=== PATIENT | male | born 1940 | race Caucasian/White ===

== ENCOUNTER 2022-03-19 00:12 | Inpatient (IN) | payer MEDICARE ==
[2022-03-19 00:35] LABS: Analyzer IN Cardio ER; Base Excess (BEa) 5.3 mEq/L (-2.0 to +3.0); Calcium, Ionized (arterial) 1.11 mmol/L (1.12-1.30); Carboxyhemoglobin (COHb) 0.4 gm% (0.0-3.0); Hemoglobin (Hb) 12.1 g/dL (14.0-18.0); O2 Tension (PaO2), arterial 141.5 mmHg (> 60.0); Potassium - ABG Lab 3.81 mmol/L (3.70-5.30)
[2022-03-19 00:36] LABS: pH, Arterial 7.25 (7.35-7.45)
[2022-03-19 00:37] LABS: CO2 Tension 82.1 mmHg (35.0-45.0); Puncture Site RRA
[2022-03-19 00:40] LABS: Bacteria/HPF None Seen HPF (None Seen); Bilirubin Negative (Negative); Blood, Urine 1+ (Negative); Clarity Clear (Clear); Glucose, Urine (Dipstick) Normal (Negative); Ketone, Urine 10 mg/dL (Negative); Leukocyte Negative Leu/uL (Negative); Nitrite Negative (Negative); Protein, Urine (Dipstick) 30 mg/dL (Neg-Trace); RBC/HPF 0-3 HPF (0-3); Specific Gravity, Urine 1.011 (1.002-1.036); Squamous Epithelial None Seen HPF (0-3); Urobilinogen Normal mg/dL (Less than 2); WBC/HPF 0-3 HPF (0-3); pH, Urine 5.5 (5.0-9.0)
[2022-03-19 00:41] LABS: ALV-art Gradient 468.875 mmHg (0-20)
[2022-03-19 00:43] LABS: #Lymphocytes 0.6 thou/uL (1.20-3.40); #Monocytes 0.6 thou/uL (0.11-0.59); #Neutrophils 4.9 thou/uL (1.40-6.50); %Basophils 0.2 % (0.0-1.0); %Eosinophils 0.7 % (0.0-10.0); %Lymphocytes 10.5 % (21.0-51.0); %Monocytes 9.1 % (0.0-10.0); %Neutrophils 79.5 % (42.0-75.0); Hemoglobin 11.1 g/dL (14.0-18.0); Mean Corpuscular HGB CONC 30.6 g/dL (32.0-36.0); Mean Corpuscular Hemoglobin 31.3 pg (27.0-31.0); Platelet Count 185 thou/uL (130-400); RBC Distribution Width 13.2 % (11.5-14.5); Red Blood Cell (RBC) Count 3.56 mill/uL (4.70-6.10); White Blood Cell (WBC) Count 6.1 thou/uL (4.8-10.8)
[2022-03-19] MEDS ORDERED: Ondansetron PF 4 MG/2 ML Vial ONE (00:43)
[2022-03-19 00:58] LABS: INR-International Normal Ratio 3.9; Prothrombin Time 39.1 sec (12.0-14.7)
[2022-03-19 00:59] LABS: PTT 85.1 sec (22.9-36.1)
[2022-03-19 01:15] LABS: ALT (SGPT) 35 U/L (8-55); AST (SGOT) 26 U/L (5-34); Albumin 3.6 g/dL (3.4-4.8); Alkaline Phosphatase 58 U/L (40-110); Anion Gap 15 mmol/L (10-20); BUN (Urea Nitrogen) 36 mg/dL (8.4-25.7); Bilirubin, Total 0.5 mg/dL (0.2-1.2); Calc. Creatinine Clearance 0 mL/min (70-130); Carbon Dioxide 35 mmol/L (23-31); Chloride 93 mmol/L (98-107); Globulin 2.3 g/dL (2.4-3.5); Glucose 103 mg/dL (83-110); Potassium 3.8 mmol/L (3.5-5.1); Protein, Total 5.9 g/dL (5.8-8.1); Sodium 139 mmol/L (136-145)
[2022-03-19] MEDS ORDERED: Furosemide 40 MG/4 ML VIAL ONE (01:49)
[2022-03-19 02:22] LABS: SARS-CoV-2 NAA Rapid Test Not Detected (NotDetected)
[2022-03-19] MEDS ORDERED: Dextrose 5 % And 0.9 % NaCl 1,000 ML IV SCH (02:30)
[2022-03-19] MEDS ORDERED: Ondansetron PF 4 MG/2 ML Vial IVP PRN (02:37)
[2022-03-19 04:23] LABS: #Eosinphils 0.1 thou/uL (0.0-0.7); #Lymphocytes 0.6 thou/uL (1.20-3.40); #Monocytes 0.5 thou/uL (0.11-0.59); #Neutrophils 4.4 thou/uL (1.40-6.50); %Basophils 0.6 % (0.0-1.0); %Eosinophils 1.2 % (0.0-10.0); %Lymphocytes 10.5 % (21.0-51.0); %Monocytes 9.4 % (0.0-10.0); %Neutrophils 78.3 % (42.0-75.0); Hemoglobin 11.4 g/dL (14.0-18.0); Mean Corpuscular HGB CONC 31.2 g/dL (32.0-36.0); Mean Corpuscular Hemoglobin 31.9 pg (27.0-31.0); Mean Platelet Volume 7.3 fL (7.4-10.4); Platelet Count 184 thou/uL (130-400); RBC Distribution Width 13.1 % (11.5-14.5); Red Blood Cell (RBC) Count 3.58 mill/uL (4.70-6.10); White Blood Cell (WBC) Count 5.7 thou/uL (4.8-10.8)
[2022-03-19 04:36] LABS: Prothrombin Time 40.3 sec (12.0-14.7)
[2022-03-19 04:38] LABS: INR-International Normal Ratio 4.1
[2022-03-19 04:50] LABS: Anion Gap 13 mmol/L (10-20); BUN (Urea Nitrogen) 33 mg/dL (8.4-25.7); Calc. Creatinine Clearance 0 mL/min (70-130); Calcium 8.1 mg/dL (7.8-10.44); Carbon Dioxide 35 mmol/L (23-31); Chloride 94 mmol/L (98-107); Glucose 94 mg/dL (83-110); Magnesium 2.2 mg/dL (1.6-2.6); Potassium 3.9 mmol/L (3.5-5.1); Sodium 138 mmol/L (136-145)
[2022-03-19 04:54] LABS: Troponin I 0.013 ng/mL (< 0.028)
[2022-03-19] MEDS: Furosemide 40 MG/4 ML VIAL SLOW IVP SCH ×2 (06:39→14:01)
[2022-03-19 08:39] LABS: Troponin I 0.012 ng/mL (< 0.028)
[2022-03-20 04:04] LABS: #Lymphocytes 0.9 thou/uL (1.20-3.40); #Monocytes 0.8 thou/uL (0.11-0.59); #Neutrophils 5.4 thou/uL (1.40-6.50); %Basophils 0.2 % (0.0-1.0); %Eosinophils 0.5 % (0.0-10.0); %Lymphocytes 12.8 % (21.0-51.0); %Monocytes 10.6 % (0.0-10.0); %Neutrophils 75.9 % (42.0-75.0); Hemoglobin 11.6 g/dL (14.0-18.0); Mean Corpuscular Hemoglobin 32.1 pg (27.0-31.0); Mean Platelet Volume 7.5 fL (7.4-10.4); Platelet Count 200 thou/uL (130-400); Red Blood Cell (RBC) Count 3.62 mill/uL (4.70-6.10); White Blood Cell (WBC) Count 7.1 thou/uL (4.8-10.8)
[2022-03-20 04:20] LABS: Prothrombin Time 48.5 sec (12.0-14.7)
[2022-03-20 04:31] LABS: INR-International Normal Ratio 5.1
[2022-03-20 04:32] LABS: Anion Gap 17 mmol/L (10-20); BUN (Urea Nitrogen) 31 mg/dL (8.4-25.7); Calc. Creatinine Clearance 41 mL/min (70-130); Calcium 8.3 mg/dL (7.8-10.44); Carbon Dioxide 36 mmol/L (23-31); Chloride 91 mmol/L (98-107); Glucose 76 mg/dL (83-110); Magnesium 2.1 mg/dL (1.6-2.6); Potassium 3.4 mmol/L (3.5-5.1); Sodium 141 mmol/L (136-145)
[2022-03-20] MEDS: Furosemide 40 MG/4 ML VIAL SLOW IVP SCH ×2 (06:13→14:20)
[2022-03-21] MEDS: Acetaminophen 325 MG TAB PO PRN ×2 (03:41→18:41)
[2022-03-21 04:04] LABS: #Lymphocytes 0.9 thou/uL (1.20-3.40); #Monocytes 1.2 thou/uL (0.11-0.59); #Neutrophils 8.1 thou/uL (1.40-6.50); %Eosinophils 0.5 % (0.0-10.0); %Lymphocytes 8.8 % (21.0-51.0); %Monocytes 11.6 % (0.0-10.0); %Neutrophils 79.1 % (42.0-75.0); Mean Corpuscular HGB CONC 31.2 g/dL (32.0-36.0); Mean Corpuscular Hemoglobin 31.8 pg (27.0-31.0); Platelet Count 200 thou/uL (130-400); Red Blood Cell (RBC) Count 3.78 mill/uL (4.70-6.10); White Blood Cell (WBC) Count 10.2 thou/uL (4.8-10.8)
[2022-03-21 04:15] LABS: Prothrombin Time 50.3 sec (12.0-14.7)
[2022-03-21 04:20] LABS: INR-International Normal Ratio 5.4
[2022-03-21 04:26] LABS: BUN (Urea Nitrogen) 19 mg/dL (8.4-25.7); Calc. Creatinine Clearance 48 mL/min (70-130); Calcium 8.2 mg/dL (7.8-10.44); Glucose 153 mg/dL (83-110); Magnesium 1.8 mg/dL (1.6-2.6)
[2022-03-21 04:37] LABS: Anion Gap 16 mmol/L (10-20); Carbon Dioxide 39 mmol/L (23-31); Chloride 86 mmol/L (98-107); Potassium 3.1 mmol/L (3.5-5.1); Sodium 138 mmol/L (136-145)
[2022-03-21] MEDS: Furosemide 40 MG/4 ML VIAL SLOW IVP SCH ×2 (06:40→12:30)
[2022-03-21] MEDS ORDERED: Potassium Chloride 20 MEQ TAB PO SCH (08:30)
[2022-03-21] MEDS ORDERED: Mag-Al 1200 mg/1200 mg/30 ML UDCUP PO PRN (18:01)
[2022-03-21] MEDS: Simethicone Chewable 80 MG TAB PO PRN (18:41)
[2022-03-21] MEDS: Tamsulosin HCl 0.4 MG CAP PO SCH (20:23)
[2022-03-21] MEDS: Montelukast Sodium 10 mg Tablet PO SCH (20:23)
[2022-03-21] MEDS: Isosorbide Dinitrate 5 MG TAB PO SCH (20:23)
[2022-03-21] MEDS: Sucralfate 1 GM TAB PO SCH (20:23)
[2022-03-21] MEDS: NIFEdipine XL 90 MG TAB PO SCH (20:23)
[2022-03-21] MEDS: Atorvastatin Calcium 10 MG TAB PO SCH (20:24)
[2022-03-21] MEDS: Nystatin 500,000 UNITS/5 ML UDCUP SSW SCH (20:24)
[2022-03-22 04:08] LABS: INR-International Normal Ratio 3.9
[2022-03-22 04:23] LABS: BUN (Urea Nitrogen) 18 mg/dL (8.4-25.7); Calc. Creatinine Clearance 51 mL/min (70-130); Calcium 8.4 mg/dL (7.8-10.44); Glucose 148 mg/dL (83-110); Magnesium 1.9 mg/dL (1.6-2.6)
[2022-03-22 04:38] LABS: Chloride 85 mmol/L (98-107); Potassium 3.3 mmol/L (3.5-5.1); Sodium 138 mmol/L (136-145)
[2022-03-22 04:40] LABS: Anion Gap 13 mmol/L (10-20)
[2022-03-22 04:44] LABS: Carbon Dioxide 43 mmol/L (23-31)
[2022-03-22] MEDS: Furosemide 40 MG/4 ML VIAL SLOW IVP SCH (04:58)
[2022-03-22] MEDS ORDERED: Potassium Chloride 20 MEQ TAB PO SCH (05:00)
[2022-03-22] MEDS: Nystatin 500,000 UNITS/5 ML UDCUP SSW SCH ×4 (09:14→19:53)
[2022-03-22] MEDS: Clopidogrel Bisulfate 75 MG TAB PO SCH (09:14)
[2022-03-22] MEDS: Fluticasone Propionate Nasal Spray 16 gm Bottle NASAL SCH (09:14)
[2022-03-22] MEDS: Amiodarone 200 MG TAB PO SCH (09:14)
[2022-03-22] MEDS: Sucralfate 1 GM TAB PO SCH ×4 (09:14→19:54)
[2022-03-22] MEDS: AcetaZOLAMIDE 250 MG TAB PO SCH ×2 (09:14→19:53)
[2022-03-22] MEDS: Isosorbide Dinitrate 5 MG TAB PO SCH ×2 (09:14→19:52)
[2022-03-22] MEDS: NIFEdipine XL 90 MG TAB PO SCH (19:52)
[2022-03-22] MEDS: Tamsulosin HCl 0.4 MG CAP PO SCH (19:52)
[2022-03-22] MEDS: Montelukast Sodium 10 mg Tablet PO SCH (19:52)
[2022-03-22] MEDS: Atorvastatin Calcium 10 MG TAB PO SCH (19:53)
[2022-03-23 04:23] LABS: #Monocytes 0.6 thou/uL (0.11-0.59); #Neutrophils 4.6 thou/uL (1.40-6.50); %Basophils 0.2 % (0.0-1.0); %Eosinophils 0.5 % (0.0-10.0); %Lymphocytes 16.4 % (21.0-51.0); %Monocytes 9.3 % (0.0-10.0); %Neutrophils 73.6 % (42.0-75.0); Mean Corpuscular HGB CONC 32.3 g/dL (32.0-36.0); Mean Corpuscular Hemoglobin 31.7 pg (27.0-31.0); Mean Corpuscular Volume 98.2 fL (78.0-98.0); Mean Platelet Volume 6.8 fL (7.4-10.4); Platelet Count 186 thou/uL (130-400); Red Blood Cell (RBC) Count 3.48 mill/uL (4.70-6.10); White Blood Cell (WBC) Count 6.3 thou/uL (4.8-10.8)
[2022-03-23 04:26] LABS: Prothrombin Time 31.9 sec (12.0-14.7)
[2022-03-23 04:41] LABS: BUN (Urea Nitrogen) 24 mg/dL (8.4-25.7); Calc. Creatinine Clearance 45 mL/min (70-130); Calcium 8.3 mg/dL (7.8-10.44); Glucose 143 mg/dL (83-110); Magnesium 1.9 mg/dL (1.6-2.6)
[2022-03-23 04:49] LABS: Anion Gap 13 mmol/L (10-20); Carbon Dioxide 39 mmol/L (23-31); Chloride 87 mmol/L (98-107); Potassium 3.1 mmol/L (3.5-5.1); Sodium 136 mmol/L (136-145)
[2022-03-23] MEDS: Sucralfate 1 GM TAB PO SCH ×4 (06:55→21:11)
[2022-03-23] MEDS ORDERED: Potassium Chloride 20 MEQ TAB PO SCH (08:45)
[2022-03-23] MEDS: Amiodarone 200 MG TAB PO SCH (10:41)
[2022-03-23] MEDS: Isosorbide Dinitrate 5 MG TAB PO SCH ×2 (10:41→22:30)
[2022-03-23] MEDS: Clopidogrel Bisulfate 75 MG TAB PO SCH (10:42)
[2022-03-23] MEDS: Nystatin 500,000 UNITS/5 ML UDCUP SSW SCH ×4 (10:43→21:10)
[2022-03-23] MEDS: Fluticasone Propionate Nasal Spray 16 gm Bottle NASAL SCH (10:47)
[2022-03-23] MEDS: Montelukast Sodium 10 mg Tablet PO SCH (21:10)
[2022-03-23] MEDS: Tamsulosin HCl 0.4 MG CAP PO SCH (21:10)
[2022-03-23] MEDS: NIFEdipine XL 90 MG TAB PO SCH (21:10)
[2022-03-23] MEDS: Acetaminophen 325 MG TAB PO PRN (21:11)
[2022-03-23] MEDS: Atorvastatin Calcium 10 MG TAB PO SCH (21:11)
[2022-03-24] MEDS: Simethicone Chewable 80 MG TAB PO PRN (03:56)
[2022-03-24] MEDS ORDERED: Bisacodyl 5 MG TAB PO PRN (04:08)
[2022-03-24 07:18] LABS: INR-International Normal Ratio 2.5; Prothrombin Time 27.8 sec (12.0-14.7)
[2022-03-24] MEDS: Clopidogrel Bisulfate 75 MG TAB PO SCH (09:47)
[2022-03-24] MEDS: Sucralfate 1 GM TAB PO SCH ×4 (09:48→21:35)
[2022-03-24] MEDS: Amiodarone 200 MG TAB PO SCH (09:48)
[2022-03-24] MEDS: Isosorbide Dinitrate 5 MG TAB PO SCH ×2 (09:49→21:35)
[2022-03-24] MEDS: Nystatin 500,000 UNITS/5 ML UDCUP SSW SCH ×4 (09:49→21:34)
[2022-03-24] MEDS: Acetaminophen 325 MG TAB PO PRN (09:54)
[2022-03-24 13:34] LABS: Troponin I 0.014 ng/mL (< 0.028)
[2022-03-24] MEDS: Fluticasone Propionate Nasal Spray 16 gm Bottle NASAL SCH (13:43)
[2022-03-24] MEDS ORDERED: Aspirin 325 MG TAB PO SCH (13:45)
[2022-03-24] MEDS: Warfarin Sodium 3 MG TAB PO SCH (17:30)
[2022-03-24] MEDS: Tamsulosin HCl 0.4 MG CAP PO SCH (21:35)
[2022-03-24] MEDS: Atorvastatin Calcium 10 MG TAB PO SCH (21:35)
[2022-03-24] MEDS: Montelukast Sodium 10 mg Tablet PO SCH (21:35)
[2022-03-24] MEDS: NIFEdipine XL 90 MG TAB PO SCH (21:39)
[2022-03-25 04:59] LABS: #Lymphocytes 0.5 thou/uL (1.20-3.40); #Monocytes 0.6 thou/uL (0.11-0.59); %Basophils 0.1 % (0.0-1.0); %Eosinophils 0.2 % (0.0-10.0); %Lymphocytes 5.9 % (21.0-51.0); %Monocytes 7.6 % (0.0-10.0); %Neutrophils 86.3 % (42.0-75.0); Hemoglobin 11.7 g/dL (14.0-18.0); Mean Corpuscular Hemoglobin 31.4 pg (27.0-31.0); Platelet Count 237 thou/uL (130-400); RBC Distribution Width 13.3 % (11.5-14.5); Red Blood Cell (RBC) Count 3.73 mill/uL (4.70-6.10); White Blood Cell (WBC) Count 8.1 thou/uL (4.8-10.8)
[2022-03-25 05:07] LABS: INR-International Normal Ratio 2.5; Prothrombin Time 27.7 sec (12.0-14.7)
[2022-03-25 05:18] LABS: Anion Gap 13 mmol/L (10-20); BUN (Urea Nitrogen) 30 mg/dL (8.4-25.7); Calc. Creatinine Clearance 42 mL/min (70-130); Calcium 8.3 mg/dL (7.8-10.44); Carbon Dioxide 35 mmol/L (23-31); Chloride 87 mmol/L (98-107); Glucose 143 mg/dL (83-110); Potassium 3.1 mmol/L (3.5-5.1); Sodium 132 mmol/L (136-145)
[2022-03-25] MEDS: Clopidogrel Bisulfate 75 MG TAB PO SCH (08:19)
[2022-03-25] MEDS: Isosorbide Dinitrate 5 MG TAB PO SCH ×2 (08:19→21:16)
[2022-03-25] MEDS: Nystatin 500,000 UNITS/5 ML UDCUP SSW SCH ×4 (08:19→21:18)
[2022-03-25] MEDS: Sucralfate 1 GM TAB PO SCH ×4 (08:19→21:19)
[2022-03-25] MEDS ORDERED: GUAIFENESIN SF SOLN 200 MG/10 ML UDCUP PO PRN (08:46)
[2022-03-25] MEDS ORDERED: Artificial Tear Sol 15 ML BOT EA EYE PRN (08:46)
[2022-03-25] MEDS ORDERED: hydrALAZINE 20 MG/ML VIAL SLOW IVP PRN (08:46)
[2022-03-25] MEDS ORDERED: Loperamide HCl 2 MG CAP PO PRN (08:46)
[2022-03-25] MEDS ORDERED: Sodium Chloride 0.65% Nasal 44 ML BOT EA NARE PRN (08:46)
[2022-03-25] MEDS ORDERED: Moisturizing Cream (Eucerin) 113 GM JAR TOP PRN (08:46)
[2022-03-25] MEDS ORDERED: Loratadine 10 MG TAB PO PRN (08:46)
[2022-03-25] MEDS ORDERED: Potassium Bicarbonate/Cit Ac 20 MEQ TAB PO SCH (09:00)
[2022-03-25] MEDS ORDERED: Furosemide 20 MG TAB PO SCH (09:00)
[2022-03-25] MEDS: Fluticasone Propionate Nasal Spray 16 gm Bottle NASAL SCH (11:34)
[2022-03-25] MEDS: Cyanocobalamin (Vitamin B-12) 1,000 MCG TAB PO SCH (11:51)
[2022-03-25] MEDS: Folic Acid 1 MG TAB PO SCH (11:51)
[2022-03-25] MEDS: Warfarin Sodium 3 MG TAB PO SCH (17:46)
[2022-03-25] MEDS: Budesonide 0.5 MG/2 ML NEB NEB SCH (18:16)
[2022-03-25] MEDS: Tamsulosin HCl 0.4 MG CAP PO SCH (21:17)
[2022-03-25] MEDS: NIFEdipine XL 90 MG TAB PO SCH (21:18)
[2022-03-25] MEDS: Atorvastatin Calcium 10 MG TAB PO SCH (21:19)
[2022-03-25] MEDS: Montelukast Sodium 10 mg Tablet PO SCH (21:19)
[2022-03-25] MEDS ORDERED: Furosemide 40 MG/4 ML VIAL ONE (23:37)
[2022-03-25 23:41] LABS: Actual Bicarbonate (HCO3a) 35.1 mEq/L (22-28); Base Excess (BEa) 6.2 mEq/L (-2.0 to +3.0); Calcium, Ionized (arterial) 1.09 mmol/L (1.12-1.30); Carboxyhemoglobin (COHb) 1.5 gm% (0.0-3.0); Hemoglobin (Hb) 12.5 g/dL (14.0-18.0); pH, Arterial 7.29 (7.35-7.45)
[2022-03-25 23:45] LABS: CO2 Tension 74.4 mmHg (35.0-45.0); O2 Tension (PaO2), arterial 41.5 mmHg (> 60.0)
[2022-03-25] MEDS ORDERED: Calcium Gluconate 100 MG/ML 10 ML IVPB SCH (23:45)
[2022-03-25 23:46] LABS: Puncture Site RBR
[2022-03-26] MEDS ORDERED: Potassium Phosphate 30 MMOL in Sodium Chloride 0.9% 500 ML IVPB SCH (00:15)
[2022-03-26] MEDS ORDERED: Magnesium 2 GM/50 ML(in water) 2 GM in Premix Bag 1 BAG IVPB SCH (00:15)
[2022-03-26] MEDS: methylPREDNISolone Sod Succ/PF 125 MG/2 ML VIAL IVP SCH ×5 (01:11→23:58)
[2022-03-26 04:02] LABS: #Lymphocytes 0.2 thou/uL (1.20-3.40); #Monocytes 0.2 thou/uL (0.11-0.59); #Neutrophils 5.4 thou/uL (1.40-6.50); %Basophils 0.2 % (0.0-1.0); %Eosinophils 0.2 % (0.0-10.0); %Lymphocytes 3.9 % (21.0-51.0); %Monocytes 3.8 % (0.0-10.0); %Neutrophils 91.8 % (42.0-75.0); Hemoglobin 11.8 g/dL (14.0-18.0); Mean Corpuscular HGB CONC 33.4 g/dL (32.0-36.0); Mean Corpuscular Hemoglobin 33.7 pg (27.0-31.0); Mean Platelet Volume 7.3 fL (7.4-10.4); Platelet Count 217 thou/uL (130-400); RBC Distribution Width 13.5 % (11.5-14.5); Red Blood Cell (RBC) Count 3.49 mill/uL (4.70-6.10); White Blood Cell (WBC) Count 5.9 thou/uL (4.8-10.8)
[2022-03-26 04:15] LABS: INR-International Normal Ratio 3.8; Prothrombin Time 38.7 sec (12.0-14.7)
[2022-03-26 04:22] LABS: ALT (SGPT) 38 U/L (8-55); AST (SGOT) 16 U/L (5-34); Albumin 3.4 g/dL (3.4-4.8); Alkaline Phosphatase 54 U/L (40-110); BUN (Urea Nitrogen) 39 mg/dL (8.4-25.7); Bilirubin, Total 0.5 mg/dL (0.2-1.2); Calc. Creatinine Clearance 37 mL/min (70-130); Calcium 8.6 mg/dL (7.8-10.44); Globulin 2.5 g/dL (2.4-3.5); Glucose 156 mg/dL (83-110); Magnesium 2.8 mg/dL (1.6-2.6); Phosphorus 4.9 mg/dL (2.3-4.7); Protein, Total 5.9 g/dL (5.8-8.1)
[2022-03-26 04:30] LABS: Anion Gap 16 mmol/L (10-20); Carbon Dioxide 35 mmol/L (23-31); Chloride 86 mmol/L (98-107); Potassium 3.4 mmol/L (3.5-5.1); Sodium 134 mmol/L (136-145)
[2022-03-26] MEDS: Budesonide 0.5 MG/2 ML NEB NEB SCH ×2 (07:21→19:17)
[2022-03-26] MEDS: Sucralfate 1 GM TAB PO SCH ×4 (10:46→21:10)
[2022-03-26] MEDS: Cyanocobalamin (Vitamin B-12) 1,000 MCG TAB PO SCH (10:47)
[2022-03-26] MEDS: Fluticasone Propionate Nasal Spray 16 gm Bottle NASAL SCH (10:47)
[2022-03-26] MEDS: Nystatin 500,000 UNITS/5 ML UDCUP SSW SCH ×4 (10:47→21:11)
[2022-03-26] MEDS: Folic Acid 1 MG TAB PO SCH (10:47)
[2022-03-26] MEDS: Clopidogrel Bisulfate 75 MG TAB PO SCH (13:24)
[2022-03-26] MEDS: Furosemide 40 MG TAB PO SCH (13:25)
[2022-03-26] MEDS: Isosorbide Dinitrate 5 MG TAB PO SCH ×2 (13:25→21:10)
[2022-03-26] MEDS: Tamsulosin HCl 0.4 MG CAP PO SCH (21:09)
[2022-03-26] MEDS: NIFEdipine XL 90 MG TAB PO SCH (21:09)
[2022-03-26] MEDS: Montelukast Sodium 10 mg Tablet PO SCH (21:10)
[2022-03-26] MEDS: Atorvastatin Calcium 10 MG TAB PO SCH (21:12)
[2022-03-27 04:09] LABS: Prothrombin Time 44.1 sec (12.0-14.7)
[2022-03-27 04:12] LABS: INR-International Normal Ratio 4.5
[2022-03-27 04:21] LABS: #Lymphocytes 0.4 thou/uL (1.20-3.40); #Monocytes 0.2 thou/uL (0.11-0.59); #Neutrophils 4.1 thou/uL (1.40-6.50); %Basophils 0.2 % (0.0-1.0); %Eosinophils 0.2 % (0.0-10.0); %Lymphocytes 8.3 % (21.0-51.0); %Monocytes 3.5 % (0.0-10.0); %Neutrophils 87.8 % (42.0-75.0); Hemoglobin 11.1 g/dL (14.0-18.0); Mean Corpuscular Hemoglobin 32.5 pg (27.0-31.0); Mean Corpuscular Volume 98.3 fL (78.0-98.0); Mean Platelet Volume 6.9 fL (7.4-10.4); Platelet Count 228 thou/uL (130-400); RBC Distribution Width 13.7 % (11.5-14.5); Red Blood Cell (RBC) Count 3.41 mill/uL (4.70-6.10); White Blood Cell (WBC) Count 4.7 thou/uL (4.8-10.8)
[2022-03-27 04:28] LABS: Troponin I Less than 0.010 ng/mL (< 0.028)
[2022-03-27 04:52] LABS: ALT (SGPT) 35 U/L (8-55); AST (SGOT) 12 U/L (5-34); Albumin 3.1 g/dL (3.4-4.8); Alkaline Phosphatase 49 U/L (40-110); Anion Gap 14 mmol/L (10-20); BUN (Urea Nitrogen) 33 mg/dL (8.4-25.7); Bilirubin, Total 0.4 mg/dL (0.2-1.2); Calc. Creatinine Clearance 42 mL/min (70-130); Calcium 8.4 mg/dL (7.8-10.44); Carbon Dioxide 34 mmol/L (23-31); Chloride 91 mmol/L (98-107); Globulin 2.4 g/dL (2.4-3.5); Glucose 196 mg/dL (83-110); Magnesium 2.3 mg/dL (1.6-2.6); Phosphorus 3.6 mg/dL (2.3-4.7); Potassium 3.3 mmol/L (3.5-5.1); Protein, Total 5.5 g/dL (5.8-8.1); Sodium 136 mmol/L (136-145)
[2022-03-27] MEDS: methylPREDNISolone Sod Succ/PF 125 MG/2 ML VIAL IVP SCH ×3 (06:00→18:00)
[2022-03-27] MEDS: Budesonide 0.5 MG/2 ML NEB NEB SCH ×2 (07:09→18:30)
[2022-03-27] MEDS: Sucralfate 1 GM TAB PO SCH ×4 (10:20→21:07)
[2022-03-27] MEDS: Cyanocobalamin (Vitamin B-12) 1,000 MCG TAB PO SCH (10:23)
[2022-03-27] MEDS: Fluticasone Propionate Nasal Spray 16 gm Bottle NASAL SCH (10:23)
[2022-03-27] MEDS: Furosemide 40 MG TAB PO SCH (10:23)
[2022-03-27] MEDS: Folic Acid 1 MG TAB PO SCH (10:23)
[2022-03-27] MEDS: Clopidogrel Bisulfate 75 MG TAB PO SCH (10:23)
[2022-03-27] MEDS: Nystatin 500,000 UNITS/5 ML UDCUP SSW SCH ×4 (10:24→21:07)
[2022-03-27] MEDS: Isosorbide Dinitrate 5 MG TAB PO SCH ×2 (10:24→21:05)
[2022-03-27] MEDS ORDERED: Warfarin Sodium 1.5 MG TAB PO SCH (17:00)
[2022-03-27] MEDS: Atorvastatin Calcium 10 MG TAB PO SCH (21:05)
[2022-03-27] MEDS: NIFEdipine XL 90 MG TAB PO SCH (21:05)
[2022-03-27] MEDS: Cefdinir 300 MG CAP PO SCH (21:05)
[2022-03-27] MEDS: Tamsulosin HCl 0.4 MG CAP PO SCH (21:05)
[2022-03-27] MEDS: Montelukast Sodium 10 mg Tablet PO SCH (21:05)
[2022-03-28] MEDS: methylPREDNISolone Sod Succ/PF 125 MG/2 ML VIAL IVP SCH ×3 (00:20→12:11)
[2022-03-28 03:53] LABS: Prothrombin Time 40.9 sec (12.0-14.7)
[2022-03-28 04:53] LABS: INR-International Normal Ratio 4.1
[2022-03-28] MEDS: Budesonide 0.5 MG/2 ML NEB NEB SCH ×2 (07:29→18:29)
[2022-03-28] MEDS: Furosemide 40 MG TAB PO SCH (08:14)
[2022-03-28] MEDS: Nystatin 500,000 UNITS/5 ML UDCUP SSW SCH ×4 (08:14→21:22)
[2022-03-28] MEDS: Clopidogrel Bisulfate 75 MG TAB PO SCH (08:14)
[2022-03-28] MEDS: Cefdinir 300 MG CAP PO SCH ×2 (08:14→21:22)
[2022-03-28] MEDS: Sucralfate 1 GM TAB PO SCH ×4 (08:15→21:22)
[2022-03-28] MEDS: Finasteride 5 MG TAB PO SCH (08:15)
[2022-03-28] MEDS: Isosorbide Dinitrate 5 MG TAB PO SCH ×2 (08:15→21:21)
[2022-03-28] MEDS: Fluticasone Propionate Nasal Spray 16 gm Bottle NASAL SCH (08:15)
[2022-03-28] MEDS: Folic Acid 1 MG TAB PO SCH (08:15)
[2022-03-28] MEDS: Cyanocobalamin (Vitamin B-12) 1,000 MCG TAB PO SCH (08:15)
[2022-03-28] MEDS: Cepastat Lozenges 1 LOZ PO PRN ×2 (09:56→12:14)
[2022-03-28] MEDS: Acetaminophen 325 MG TAB PO PRN (13:18)
[2022-03-28] MEDS ORDERED: predniSONE 20 MG TAB PO SCH (15:45)
[2022-03-28] MEDS ORDERED: Potassium Chloride 10 MEQ TAB PO SCH (15:45)
[2022-03-28 16:46] LABS: Anion Gap 11 mmol/L (10-20); BUN (Urea Nitrogen) 31 mg/dL (8.4-25.7); Calc. Creatinine Clearance 47 mL/min (70-130); Calcium 8.4 mg/dL (7.8-10.44); Carbon Dioxide 37 mmol/L (23-31); Chloride 88 mmol/L (98-107); Glucose 187 mg/dL (83-110); Potassium 3.4 mmol/L (3.5-5.1); Sodium 133 mmol/L (136-145)
[2022-03-28] MEDS: NIFEdipine XL 90 MG TAB PO SCH (21:21)
[2022-03-28] MEDS: Atorvastatin Calcium 10 MG TAB PO SCH (21:21)
[2022-03-28] MEDS: Montelukast Sodium 10 mg Tablet PO SCH (21:22)
[2022-03-28] MEDS: Ascorbic Acid 500 mg Chewable Tablet PO SCH (21:22)
[2022-03-28] MEDS: Tamsulosin HCl 0.4 MG CAP PO SCH (21:22)
[2022-03-29 04:14] LABS: INR-International Normal Ratio 3.1; Prothrombin Time 32.7 sec (12.0-14.7)
[2022-03-29 04:22] LABS: Magnesium 2.2 mg/dL (1.6-2.6)
[2022-03-29] MEDS: Budesonide 0.5 MG/2 ML NEB NEB SCH ×2 (07:47→17:53)
[2022-03-29] MEDS: Cyanocobalamin (Vitamin B-12) 1,000 MCG TAB PO SCH (09:42)
[2022-03-29] MEDS: Furosemide 40 MG TAB PO SCH (09:43)
[2022-03-29] MEDS: Clopidogrel Bisulfate 75 MG TAB PO SCH (09:43)
[2022-03-29] MEDS: Cefdinir 300 MG CAP PO SCH ×2 (09:43→21:01)
[2022-03-29] MEDS: Isosorbide Dinitrate 5 MG TAB PO SCH ×2 (09:43→21:00)
[2022-03-29] MEDS: Folic Acid 1 MG TAB PO SCH (09:43)
[2022-03-29] MEDS: Ascorbic Acid 500 mg Chewable Tablet PO SCH ×2 (09:43→21:00)
[2022-03-29] MEDS: Finasteride 5 MG TAB PO SCH (09:43)
[2022-03-29] MEDS: Nystatin 500,000 UNITS/5 ML UDCUP SSW SCH ×4 (09:44→21:02)
[2022-03-29] MEDS: Sucralfate 1 GM TAB PO SCH ×4 (09:44→21:01)
[2022-03-29] MEDS: Fluticasone Propionate Nasal Spray 16 gm Bottle NASAL SCH (09:44)
[2022-03-29 11:55] VITALS: BMI 24.4
[2022-03-29] MEDS: Atorvastatin Calcium 10 MG TAB PO SCH (21:00)
[2022-03-29] MEDS: NIFEdipine XL 90 MG TAB PO SCH (21:00)
[2022-03-29] MEDS: Tamsulosin HCl 0.4 MG CAP PO SCH (21:00)
[2022-03-29] MEDS: Montelukast Sodium 10 mg Tablet PO SCH (21:01)
[2022-03-30 03:04] LABS: #Eosinphils 0.1 thou/uL (0.0-0.7); #Lymphocytes 0.9 thou/uL (1.20-3.40); #Neutrophils 5.7 thou/uL (1.40-6.50); %Basophils 0.4 % (0.0-1.0); %Eosinophils 0.7 % (0.0-10.0); %Lymphocytes 12.2 % (21.0-51.0); %Monocytes 12.5 % (0.0-10.0); %Neutrophils 74.3 % (42.0-75.0); Hemoglobin 10.6 g/dL (14.0-18.0); Mean Corpuscular HGB CONC 31.8 g/dL (32.0-36.0); Mean Corpuscular Hemoglobin 31.9 pg (27.0-31.0); Mean Platelet Volume 6.8 fL (7.4-10.4); Platelet Count 216 thou/uL (130-400); Red Blood Cell (RBC) Count 3.33 mill/uL (4.70-6.10); White Blood Cell (WBC) Count 7.7 thou/uL (4.8-10.8)
[2022-03-30 03:54] LABS: Anion Gap 11 mmol/L (10-20); BUN (Urea Nitrogen) 29 mg/dL (8.4-25.7); Calc. Creatinine Clearance 51 mL/min (70-130); Calcium 7.6 mg/dL (7.8-10.44); Carbon Dioxide 36 mmol/L (23-31); Chloride 91 mmol/L (98-107); Glucose 195 mg/dL (83-110); Sodium 135 mmol/L (136-145)
[2022-03-30] MEDS: Budesonide 0.5 MG/2 ML NEB NEB SCH (07:00)
[2022-03-30] MEDS: Ascorbic Acid 500 mg Chewable Tablet PO SCH (09:03)
[2022-03-30] MEDS: Clopidogrel Bisulfate 75 MG TAB PO SCH (09:03)
[2022-03-30] MEDS: Cefdinir 300 MG CAP PO SCH (09:03)
[2022-03-30] MEDS: Finasteride 5 MG TAB PO SCH (09:03)
[2022-03-30] MEDS: Sucralfate 1 GM TAB PO SCH ×2 (09:03→12:15)
[2022-03-30] MEDS: Furosemide 40 MG TAB PO SCH (09:04)
[2022-03-30] MEDS: Cyanocobalamin (Vitamin B-12) 1,000 MCG TAB PO SCH (09:04)
[2022-03-30] MEDS: Folic Acid 1 MG TAB PO SCH (09:04)
[2022-03-30] MEDS: Isosorbide Dinitrate 5 MG TAB PO SCH (09:04)
[2022-03-30] MEDS: Nystatin 500,000 UNITS/5 ML UDCUP SSW SCH ×4 (09:16→21:34)
[2022-03-30] MEDS: Fluticasone Propionate Nasal Spray 16 gm Bottle NASAL SCH (09:30)
[2022-03-30 12:25] VITALS: BP 101/62
[2022-03-30 21:16] VITALS: TEMP 98.6
== END 2022-03-30 16:30 | DRG 291 ==
LOC: ERS 00:12 → CCU 02:24 → NEURO 03-23 17:21 → 2NO 03-24 17:43 → CCU 03-25 23:56
PROVIDERS: ADMIT Internal Medicine; ATTEND Internal Medicine
PROC: 5A09557 Assistance with Respiratory Ventilation, Greater than 96 Consecutive Hours, Continuous Positive Airway Pressure (ICD-10-PCS; principal; 2022-03-19)
DX: I13.0 Hypertensive heart and chronic kidney disease with heart failure and stage 1 through stage 4 chronic kidney disease, or unspecified chronic kidney disease (principal); J96.01 Acute respiratory failure with hypoxia; I50.33 Acute on chronic diastolic (congestive) heart failure; J96.02 Acute respiratory failure with hypercapnia; G93.41 Metabolic encephalopathy; I48.20 Chronic atrial fibrillation, unspecified; E87.3 Alkalosis; J44.1 Chronic obstructive pulmonary disease with (acute) exacerbation; E78.5 Hyperlipidemia, unspecified; I73.9 Peripheral vascular disease, unspecified; G47.33 Obstructive sleep apnea (adult) (pediatric); N40.1 Benign prostatic hyperplasia with lower urinary tract symptoms; R33.8 Other retention of urine; N18.30 Chronic kidney disease, stage 3 unspecified; E87.6 Hypokalemia; N41.9 Inflammatory disease of prostate, unspecified; Z88.5 Allergy status to narcotic agent; Z79.82 Long term (current) use of aspirin; Z79.899 Other long term (current) drug therapy; Z79.01 Long term (current) use of anticoagulants; Z82.49 Family history of ischemic heart disease and other diseases of the circulatory system; Z87.891 Personal history of nicotine dependence
CPT/HCPCS: 36415; 36416; 36600; 51702; 71045; 74018; 74230; 80048; 80053; 81003; 81015; 82306; 82805; 83605; 83735; 83880; 84100; 84484; 85025; 85610; 85730; 87040; 87086; 93005; 93010; 93306; 94640; 94660; 96374; 96375; J0610; J1940; J2405; J2930; J3475; J3490; J7030; J7512; J7620; J7626; U0002; U0003; U0005